=== PATIENT | male | born 1980 | race Caucasian/White ===

== ENCOUNTER → 2016-11-21 | Outpatient (CLI) | payer BC ==
--- NOTE | 2016-11-21 14:11 | DI ---
XR EYE FOREIGN BODY,11/21/2016 1:58 PM: Clinical History: Clearance for MRI Previous Exam: None at this facility. Findings: AP and lateral views of the orbits are obtained, and demonstrate no evidence of metallic foreign body . The paranasal sinuses are unremarkable. Impression: No evidence of metallic foreign body.
--- NOTE | 2016-11-21 16:47 | DI ---
MRI CERVICAL SPINE W/O CN,11/21/2016 1:55 PM: Clinical History: Cervicalgia Previous Exam: None at this facility. Findings: Multiplanar MR images are obtained through the cervical spine without contrast. Bony alignment is anatomic and no fractures are seen. Marrow signal is preserved. Vertebral body heig ht is preserved. The spinal cord demonstrates heterogeneous signal especially within the fibula, neela and in 2 separat e areas involving the left cord at the C4/5 level. This extends 15 mm from superior to inferior and m easures 4 mm from anterior to posterior. There is also a more faint area of increased T2 signal invol ving the right lateral cord at the C2/3 level. The posterior fossa is otherwise unremarkable. There is no significant facet hypertrophy or degenerative disc disease to cause any significant centr al canal nor neural foraminal narrowing. Impression: 1. Normal cervical spine for age without significant central canal nor neural foraminal narrowing. 2. Heterogeneous signal of the spinal cord most worrisome for a demyelinating process. Recommend MRI brain the myelination protocol and MRI cervical spine demyelinating protocol.
== END ==
LOC: MRI 13:50
PROVIDERS: ATTEND Chiropractor
DX: M54.2 Cervicalgia (principal); Z57.8 Occupational exposure to other risk factors
CPT/HCPCS: 70030; 72141

== ENCOUNTER → 2016-11-22 | Outpatient (CLI) | payer BC ==
--- NOTE | 2016-11-22 10:29 | DI ---
MRI BRAIN W/O CN,11/22/2016 8:45 AM: Clinical History: Dizziness and facial numbness. Previous Exam: None at this facility. Findings: Multiplanar MR images are obtained through the brain without contrast, and demonstrate multiple scatt ered areas of increased FLAIR and T2 signal the largest of which is within the right posterior cerebe llar peduncle, and measures 1.8 x 1.5 cm in cross-section. There is some abnormally restricted diffusion noted within these areas of increased FLAIR signal. The se are probably within the periventricular white matter. The intraorbital structures are unremarkable. The upper cervical spine is unremarkable. Major vascular flow voids are unremarkable. The internal au ditory canals and cerebellopontine angles are normal. The paranasal sinuses are unremarkable. Impression: 1. Multiple areas of increased FLAIR and T2 signal throughout the periventricular white matter. The m ost conspicuous of these is a lesion within the right cerebellar peduncle measuring 15 x 18 mm. These findings are most consistent with a demyelinating disease. Is impossible to tell if these are active plaques is there was no contrast administered.
== END ==
LOC: MRI 08:44
PROVIDERS: ATTEND Neurological Surgery
DX: R42 Dizziness and giddiness (principal); R20.0 Anesthesia of skin
CPT/HCPCS: 70551